=== PATIENT | female | born 1935 | race Caucasian/White ===

== ENCOUNTER 2020-12-29 12:07 | Outpatient (CLI) | payer MEDICARE | END 2020-12-29 12:08 | disposition home or self-care (01) | LOC: BICRAD 12:07 | PROVIDERS: ATTEND Internal Medicine Pulmonary Disease | DX: R06.00 Dyspnea, unspecified (principal) | CPT/HCPCS: 71046 ==

== ENCOUNTER 2021-02-05 12:51 | Outpatient (CLI) | payer MEDICARE ==
[~2021-02-05 12:51] MED LIST: Iopamidol-370 76% 500 ML 1 ML ONE
== END 2021-02-05 12:52 | disposition home or self-care (01) ==
LOC: BICCT 12:51
PROVIDERS: ATTEND Specialist
DX: I71.4 Abdominal aortic aneurysm, without rupture (principal); K80.20 Calculus of gallbladder without cholecystitis without obstruction; D25.9 Leiomyoma of uterus, unspecified
CPT/HCPCS: 74174; 82565; Q9967

== ENCOUNTER 2021-09-27 12:23 | Outpatient (CLI) | payer MEDICARE | END 2021-09-27 12:24 | disposition home or self-care (01) | LOC: BICULT 12:23 | PROVIDERS: ATTEND Student in an Organized Health Care Education/Training Program | DX: I10 Essential (primary) hypertension (principal) | CPT/HCPCS: 76770 ==

== ENCOUNTER 2021-12-02 09:52 | Outpatient (CLI) | payer MEDICARE, OTHER | END 2021-12-02 09:53 | disposition home or self-care (01) | LOC: BICMAMMO 09:52 | PROVIDERS: ATTEND Student in an Organized Health Care Education/Training Program | DX: Z13.820 Encounter for screening for osteoporosis (principal); Z78.0 Asymptomatic menopausal state; M81.0 Age-related osteoporosis without current pathological fracture | CPT/HCPCS: 77080 ==

== ENCOUNTER 2022-04-25 21:20 | Emergency (ER) | payer OTHER ==
[2022-04-25] MEDS ORDERED: diphenhydrAMINE 50 MG/ML VIAL ONE (21:45)
[2022-04-25] MEDS ORDERED: Acetaminophen 500 MG TAB ONE (21:45)
[2022-04-25] MEDS ORDERED: Metoclopramide HCl 10 MG/2 ML VIAL ONE (21:45)
[2022-04-25] MEDS ORDERED: diphenhydrAMINE 12.5 MG/5 ML UDCUP ONE (21:45)
[2022-04-25 21:53] LABS: #Eosinphils 0.2 thou/uL (0.0-0.7); #Lymphocytes 1.6 thou/uL (1.20-3.40); #Monocytes 0.6 thou/uL (0.11-0.59); #Neutrophils 4.4 thou/uL (1.40-6.50); %Basophils 0.4 % (0.0-1.0); %Eosinophils 3.1 % (0.0-10.0); %Lymphocytes 23.2 % (21.0-51.0); %Neutrophils 64.2 % (42.0-75.0); Hemoglobin 12.1 g/dL (12.0-16.0); Mean Corpuscular HGB CONC 31.9 g/dL (32.0-36.0); Mean Corpuscular Hemoglobin 31.2 pg (27.0-31.0); Mean Platelet Volume 6.6 fL (7.4-10.4); Platelet Count 306 10x3/uL (130-400); RBC Distribution Width 12.1 % (11.5-14.5); Red Blood Cell (RBC) Count 3.88 mill/uL (4.20-5.40); White Blood Cell (WBC) Count 6.9 10x3/uL (4.8-10.8)
[2022-04-25] MEDS ORDERED: hydrALAZINE 20 MG/ML VIAL ONE (21:54)
[2022-04-25 22:16] LABS: ALT (SGPT) Less than 7 U/L (8-55); AST (SGOT) 18 U/L (5-34); Albumin 3.5 g/dL (3.4-4.8); Alkaline Phosphatase 115 U/L (40-110); Anion Gap 11 mmol/L (10-20); BUN (Urea Nitrogen) 12 mg/dL (9.8-20.1); Bilirubin, Total 1.2 mg/dL (0.2-1.2); Calc. Creatinine Clearance 0 mL/min (70-130); Calcium 9.1 mg/dL (7.8-10.44); Carbon Dioxide 31 mmol/L (23-31); Chloride 103 mmol/L (98-107); Estimated GFR 70; Globulin 2.9 g/dL (2.4-3.5); Glucose 116 mg/dL (83-110); Potassium 3.8 mmol/L (3.5-5.1); Protein, Total 6.4 g/dL (5.8-8.1); Sodium 141 mmol/L (136-145)
[2022-04-26 00:13] LABS: Bacteria/HPF 4+ HPF (None Seen); Bilirubin Negative (Negative); Blood, Urine Negative (Negative); Clarity Turbid (Clear); Glucose, Urine (Dipstick) Normal (Negative); Ketone, Urine Negative (Negative); Leukocyte 500 Leu/uL (Negative); Nitrite Negative (Negative); Protein, Urine (Dipstick) 20 mg/dL (Neg-Trace); RBC/HPF 0-3 HPF (0-3); Specific Gravity, Urine 1.012 (1.002-1.036); Squamous Epithelial 0-3 HPF (0-3); Urobilinogen Normal mg/dL (Less than 2); WBC/HPF Greater than 50 HPF (0-3)
== END 2022-04-26 00:56 | disposition home or self-care (01) ==
LOC: ERS 21:20
DX: I10 Essential (primary) hypertension (principal); N39.0 Urinary tract infection, site not specified; E78.5 Hyperlipidemia, unspecified; J44.9 Chronic obstructive pulmonary disease, unspecified; Z79.899 Other long term (current) drug therapy; Z79.82 Long term (current) use of aspirin; Z87.891 Personal history of nicotine dependence
CPT/HCPCS: 36415; 70450; 80053; 81003; 81015; 84484; 85025; 93005; 96374; J0360; J1200; J2765; Q0163

== ENCOUNTER 2022-08-22 12:58 | Outpatient (CLI) | payer OTHER | END 2022-08-22 12:59 | disposition home or self-care (01) | LOC: SCSRAD 12:58 | PROVIDERS: ATTEND Student in an Organized Health Care Education/Training Program | DX: R06.02 Shortness of breath (principal) | CPT/HCPCS: 71046; 71048 ==

== ENCOUNTER 2023-02-17 00:27 | Inpatient (IN) | payer OTHER ==
[2023-02-17] MEDS ORDERED: Ipratropium/Albuterol 3 ML NEB ONE (00:39)
[2023-02-17] MEDS ORDERED: Azithromycin 500 MG VIAL ONE (01:12)
[2023-02-17] MEDS ORDERED: Sodium Chloride 0.9% 100 ML ONE ×2 (01:12→01:15)
[2023-02-17] MEDS ORDERED: methylPREDNISolone Sod Succ/PF 125 MG/2 ML VIAL ONE (01:12)
[2023-02-17] MEDS ORDERED: cefTRIAXone (ROCEPHIN) 2 GM VIAL ONE (01:14)
[2023-02-17 01:15] LABS: #Basophils 0.1 thou/uL (0.0-0.2); #Monocytes 1.5 thou/uL (0.11-0.59); #Neutrophils 18.1 thou/uL (1.40-6.50); %Basophils 0.4 % (0.0-1.0); %Lymphocytes 5.2 % (21.0-51.0); %Neutrophils 86.7 % (42.0-75.0); Hematocrit 35.4 % (36.0-47.0); Hemoglobin 11.3 g/dL (12.0-16.0); Mean Corpuscular HGB CONC 31.9 g/dL (32.0-36.0); Mean Corpuscular Hemoglobin 30.3 pg (27.0-31.0); Mean Corpuscular Volume 94.9 fl (78.0-98.0); Mean Platelet Volume 9.8 fL (7.4-10.4); Platelet Count 305 10x3/uL (130-400); RBC Distribution Width 13.8 % (11.5-14.5); Red Blood Cell (RBC) Count 3.73 mill/uL (4.20-5.40); White Blood Cell (WBC) Count 20.9 10x3/uL (4.8-10.8)
[2023-02-17 01:42] LABS: ALT (SGPT) 10 U/L (8-55); AST (SGOT) 21 U/L (5-34); Alkaline Phosphatase 101 U/L (40-110); Anion Gap 20 mmol/L (10-20); BUN (Urea Nitrogen) 29 mg/dL (9.8-20.1); Bilirubin, Total 1.7 mg/dL (0.2-1.2); Calc. Creatinine Clearance 0 mL/min (70-130); Calcium 9.2 mg/dL (7.8-10.44); Carbon Dioxide 27 mmol/L (23-31); Chloride 99 mmol/L (98-107); Estimated GFR 37; Globulin 3.2 g/dL (2.4-3.5); Glucose 165 mg/dL (83-110); Potassium 4.6 mmol/L (3.5-5.1); Protein, Total 7.2 g/dL (5.8-8.1); Sodium 141 mmol/L (136-145)
[2023-02-17 01:45] LABS: Bacteria/HPF 1+ HPF (None Seen); Bilirubin Negative (Negative); Blood, Urine 1+ (Negative); CAUTI Indications for Culture Alt mental st,lethar; Clarity Extra Turbid (Clear); Glucose, Urine (Dipstick) Normal (Negative); Ketone, Urine Negative (Negative); Leukocyte 500 Leu/uL (Negative); Nitrite Negative (Negative); Protein, Urine (Dipstick) 100 mg/dL (Neg-Trace); Specific Gravity, Urine 1.016 (1.002-1.036); Squamous Epithelial 0-3 HPF (0-3); Transitional Epithelial 0-3 HPF (None Seen); Urobilinogen Normal mg/dL (Less than 2); WBC/HPF Greater than 50 HPF (0-3); pH, Urine 5.5 (5.0-9.0)
[2023-02-17 01:46] LABS: Urine Culture Reflex Yes Yes
[2023-02-17] MEDS ORDERED: Ondansetron ODT 4 MG TAB PO PRN (04:57)
[2023-02-17] MEDS ORDERED: Acetaminophen 325 MG TAB PO PRN (04:57)
[2023-02-17] MEDS: Ipratropium/Albuterol 3 ML NEB NEB SCH ×3 (07:18→18:09)
[2023-02-17] MEDS: Sodium Chloride 0.9% 1,000 ML IV SCH ×2 (08:55→20:00)
[2023-02-17] MEDS: Famotidine 20 MG TAB PO SCH ×2 (08:55→20:00)
[2023-02-17] MEDS ORDERED: methylPREDNISolone Sod Succ 40 MG VIAL IVP SCH (09:00)
[2023-02-17] MEDS: methylPREDNISolone Sod Succ 40 MG VIAL IVP SCH ×3 (12:29→23:35)
[2023-02-17] MEDS ORDERED: Iopamidol 370 76% 100 ML VIAL ONE (13:00)
[2023-02-17 14:05] VITALS: BMI 21.7
[2023-02-17] MEDS: Mometasone/Formoterol 200/5 60 PUFF INH SCH (18:11)
[2023-02-17] MEDS: cefTRIAXone\\ROCEPHIN 1 GM in Sodium Chloride 0.9% 100 ML IVPB SCH (20:00)
[2023-02-17] MEDS: Atorvastatin Calcium 40 MG TAB PO SCH (20:00)
[2023-02-17 21:05] LABS: Troponin I 0.059 ng/mL (< 0.028)
[2023-02-18] MEDS: Ipratropium/Albuterol 3 ML NEB NEB SCH ×4 (00:53→18:26)
[2023-02-18 05:02] LABS: #Monocytes 0.5 thou/uL (0.11-0.59); %Basophils 0.2 % (0.0-1.0); %Lymphocytes 6.4 % (21.0-51.0); %Monocytes 3.8 % (0.0-10.0); %Neutrophils 88.6 % (42.0-75.0); Hematocrit 28.2 % (36.0-47.0); Hemoglobin 8.9 g/dL (12.0-16.0); Mean Corpuscular HGB CONC 31.6 g/dL (32.0-36.0); Mean Corpuscular Hemoglobin 30.6 pg (27.0-31.0); Mean Corpuscular Volume 96.9 fl (78.0-98.0); Mean Platelet Volume 9.6 fL (7.4-10.4); Platelet Count 236 10x3/uL (130-400); RBC Distribution Width 13.5 % (11.5-14.5); Red Blood Cell (RBC) Count 2.91 mill/uL (4.20-5.40); White Blood Cell (WBC) Count 12.4 10x3/uL (4.8-10.8)
[2023-02-18] MEDS: Azithromycin 500 MG in Sodium Chloride 0.9% 250 ML 250 ML IVPB SCH (05:14)
[2023-02-18] MEDS: methylPREDNISolone Sod Succ 40 MG VIAL IVP SCH ×3 (05:15→18:08)
[2023-02-18 05:26] LABS: Anion Gap 11 mmol/L (10-20); BUN (Urea Nitrogen) 31 mg/dL (9.8-20.1); Calc. Creatinine Clearance 28 mL/min (70-130); Calcium 8.7 mg/dL (7.8-10.44); Carbon Dioxide 26 mmol/L (23-31); Chloride 109 mmol/L (98-107); Estimated GFR 44; Glucose 191 mg/dL (83-110); Potassium 3.6 mmol/L (3.5-5.1); Sodium 142 mmol/L (136-145)
[2023-02-18] MEDS: Mometasone/Formoterol 200/5 60 PUFF INH SCH ×2 (07:14→18:29)
[2023-02-18] MEDS: Famotidine 20 MG TAB PO SCH (08:52)
[2023-02-18] MEDS ORDERED: Amlodipine 10 MG TAB PO SCH ×2 (09:00→09:45)
[2023-02-18] MEDS ORDERED: cloNIDine 0.1 MG TAB PO PRN (09:07)
[2023-02-18] MEDS ORDERED: Atorvastatin Calcium 40 MG TAB PO SCH (21:00)
[2023-02-18] MEDS: Atorvastatin Calcium 40 MG TAB PO SCH (22:18)
[2023-02-18] MEDS: cefTRIAXone\\ROCEPHIN 1 GM in Sodium Chloride 0.9% 100 ML IVPB SCH (22:18)
[2023-02-19] MEDS: methylPREDNISolone Sod Succ 40 MG VIAL IVP SCH ×4 (00:50→17:53)
[2023-02-19] MEDS: Ipratropium/Albuterol 3 ML NEB NEB SCH ×4 (00:52→19:27)
[2023-02-19] MEDS: Azithromycin 500 MG in Sodium Chloride 0.9% 250 ML 250 ML IVPB SCH (06:26)
[2023-02-19] MEDS: Mometasone/Formoterol 200/5 60 PUFF INH SCH ×2 (06:46→19:27)
[2023-02-19] MEDS: Famotidine 20 MG TAB PO SCH (09:12)
[2023-02-19] MEDS: Amlodipine 10 MG TAB PO SCH (09:12)
[2023-02-19 09:52] LABS: #Monocytes 0.3 thou/uL (0.11-0.59); #Neutrophils 11.9 thou/uL (1.40-6.50); %Basophils 0.2 % (0.0-1.0); %Lymphocytes 4.4 % (21.0-51.0); %Monocytes 2.6 % (0.0-10.0); %Neutrophils 90.7 % (42.0-75.0); Hematocrit 33.4 % (36.0-47.0); Hemoglobin 10.6 g/dL (12.0-16.0); Mean Corpuscular HGB CONC 31.7 g/dL (32.0-36.0); Mean Corpuscular Hemoglobin 30.7 pg (27.0-31.0); Mean Corpuscular Volume 96.8 fl (78.0-98.0); Mean Platelet Volume 9.5 fL (7.4-10.4); Platelet Count 355 10x3/uL (130-400); RBC Distribution Width 13.6 % (11.5-14.5); Red Blood Cell (RBC) Count 3.45 mill/uL (4.20-5.40); White Blood Cell (WBC) Count 13.1 10x3/uL (4.8-10.8)
[2023-02-19 10:12] LABS: Anion Gap 17 mmol/L (10-20); BUN (Urea Nitrogen) 26 mg/dL (9.8-20.1); Calc. Creatinine Clearance 32 mL/min (70-130); Calcium 8.9 mg/dL (7.8-10.44); Carbon Dioxide 26 mmol/L (23-31); Chloride 106 mmol/L (98-107); Estimated GFR 53; Glucose 189 mg/dL (83-110); Potassium 3.4 mmol/L (3.5-5.1); Sodium 146 mmol/L (136-145)
[2023-02-19] MEDS ORDERED: Potassium Chloride 20 MEQ TAB PO SCH (14:30)
[2023-02-19] MEDS: Sodium Chloride 0.9% 1,000 ML IV SCH (14:35)
[2023-02-19] MEDS: cefTRIAXone\\ROCEPHIN 1 GM in Sodium Chloride 0.9% 100 ML IVPB SCH (20:16)
[2023-02-19] MEDS: Atorvastatin Calcium 40 MG TAB PO SCH (20:16)
[2023-02-20] MEDS: methylPREDNISolone Sod Succ 40 MG VIAL IVP SCH ×3 (00:38→13:07)
[2023-02-20] MEDS: Ipratropium/Albuterol 3 ML NEB NEB SCH ×3 (00:54→13:45)
[2023-02-20] MEDS: Sodium Chloride 0.9% 1,000 ML IV SCH (05:34)
[2023-02-20 06:09] LABS: #Monocytes 0.5 thou/uL (0.11-0.59); #Neutrophils 8.4 thou/uL (1.40-6.50); %Basophils 0.3 % (0.0-1.0); %Lymphocytes 6.6 % (21.0-51.0); %Monocytes 4.5 % (0.0-10.0); %Neutrophils 84.8 % (42.0-75.0); Hematocrit 30.7 % (36.0-47.0); Hemoglobin 9.5 g/dL (12.0-16.0); Mean Corpuscular HGB CONC 30.9 g/dL (32.0-36.0); Mean Corpuscular Hemoglobin 29.7 pg (27.0-31.0); Mean Corpuscular Volume 95.9 fl (78.0-98.0); Mean Platelet Volume 9.5 fL (7.4-10.4); Platelet Count 303 10x3/uL (130-400); RBC Distribution Width 13.5 % (11.5-14.5); White Blood Cell (WBC) Count 9.9 10x3/uL (4.8-10.8)
[2023-02-20 06:31] LABS: Anion Gap 10 mmol/L (10-20); BUN (Urea Nitrogen) 28 mg/dL (9.8-20.1); Calc. Creatinine Clearance 35 mL/min (70-130); Carbon Dioxide 31 mmol/L (23-31); Chloride 104 mmol/L (98-107); Estimated GFR 58; Glucose 153 mg/dL (83-110); Potassium 3.9 mmol/L (3.5-5.1); Sodium 141 mmol/L (136-145)
[2023-02-20] MEDS: Mometasone/Formoterol 200/5 60 PUFF INH SCH (07:10)
[2023-02-20] MEDS: Amlodipine 10 MG TAB PO SCH (09:41)
[2023-02-20] MEDS: Famotidine 20 MG TAB PO SCH (09:41)
[2023-02-20 12:36] VITALS: BP 159/79; TEMP 97.6
== END 2023-02-20 15:03 | disposition home or self-care (01) | DRG 871 ==
LOC: ERS 00:27 → 2SE 05:57
PROVIDERS: ADMIT Student in an Organized Health Care Education/Training Program; ATTEND Family Medicine
DX: A41.51 Sepsis due to Escherichia coli [E. coli] (principal); J96.21 Acute and chronic respiratory failure with hypoxia; J44.1 Chronic obstructive pulmonary disease with (acute) exacerbation; N39.0 Urinary tract infection, site not specified; N17.9 Acute kidney failure, unspecified; E87.0 Hyperosmolality and hypernatremia; R65.20 Severe sepsis without septic shock; Z66 Do not resuscitate; M84.375A Stress fracture, left foot, initial encounter for fracture; I10 Essential (primary) hypertension; E78.5 Hyperlipidemia, unspecified; R53.1 Weakness; R91.1 Solitary pulmonary nodule; B96.20 Unspecified Escherichia coli [E. coli] as the cause of diseases classified elsewhere; E87.6 Hypokalemia; Z85.3 Personal history of malignant neoplasm of breast; Z90.10 Acquired absence of unspecified breast and nipple; Z98.890 Other specified postprocedural states
CPT/HCPCS: 36415; 36416; 51701; 71045; 71275; 80048; 80053; 81001; 83605; 83880; 84484; 85025; 87040; 87077; 87086; 87149; 87186; 93005; 93306; 94640; 94660; 94664; 96365; 96375; J0456; J0696; J1650; J2920; J2930; J3490; J7050; J7620

== ENCOUNTER 2023-03-01 11:52 | Outpatient (CLI) | payer OTHER | END 2023-03-01 11:53 | disposition home or self-care (01) | LOC: SCSRAD 11:52 | PROVIDERS: ATTEND Family Medicine | DX: M79.605 Pain in left leg (principal); S92.322A Displaced fracture of second metatarsal bone, left foot, initial encounter for closed fracture; S92.332A Displaced fracture of third metatarsal bone, left foot, initial encounter for closed fracture ==

== ENCOUNTER 2023-03-02 12:02 | Inpatient (IN) | payer OTHER ==
[2023-03-02 12:54] LABS: #Eosinphils 0.2 thou/uL (0.0-0.7); #Monocytes 0.6 thou/uL (0.11-0.59); #Neutrophils 10.3 thou/uL (1.40-6.50); %Basophils 0.3 % (0.0-1.0); %Eosinophils 1.3 % (0.0-10.0); %Lymphocytes 6.2 % (21.0-51.0); %Monocytes 4.9 % (0.0-10.0); %Neutrophils 86.3 % (42.0-75.0); Hematocrit 31.9 % (36.0-47.0); Hemoglobin 10.2 g/dL (12.0-16.0); Mean Corpuscular Hemoglobin 30.5 pg (27.0-31.0); Mean Corpuscular Volume 95.5 fl (78.0-98.0); Platelet Count 173 10x3/uL (130-400); RBC Distribution Width 14.7 % (11.5-14.5); Red Blood Cell (RBC) Count 3.34 mill/uL (4.20-5.40)
[2023-03-02 13:27] LABS: ALT (SGPT) 16 U/L (8-55); AST (SGOT) 29 U/L (5-34); Albumin 3.7 g/dL (3.4-4.8); Alkaline Phosphatase 62 U/L (40-110); Anion Gap 15 mmol/L (10-20); BUN (Urea Nitrogen) 33 mg/dL (9.8-20.1); Calc. Creatinine Clearance 0 mL/min (70-130); Calcium 9.1 mg/dL (7.8-10.44); Carbon Dioxide 34 mmol/L (23-31); Chloride 95 mmol/L (98-107); Estimated GFR 20; Globulin 2.5 g/dL (2.4-3.5); Glucose 93 mg/dL (83-110); Potassium 4.1 mmol/L (3.5-5.1); Protein, Total 6.2 g/dL (5.8-8.1); Sodium 140 mmol/L (136-145)
[2023-03-02] MEDS ORDERED: Magnesium 2 GM/50 ML BAG (IN WATER) ONE (13:34)
[2023-03-02] MEDS ORDERED: methylPREDNISolone Sod Succ/PF 125 MG/2 ML VIAL ONE (13:34)
[2023-03-02 13:35] LABS: Troponin I 0.019 ng/mL (< 0.028)
[2023-03-02] MEDS ORDERED: Ipratropium/Albuterol 3 ML NEB ONE (16:10)
[2023-03-02] MEDS ORDERED: Ondansetron PF 4 MG/2 ML Vial IVP PRN ×2 (18:00→18:16)
[2023-03-02] MEDS ORDERED: Ondansetron ODT 4 MG TAB SL PRN (18:00)
[2023-03-02] MEDS ORDERED: Acetaminophen 325 MG TAB PO PRN (18:00)
[2023-03-02] MEDS ORDERED: Ondansetron ODT 4 MG TAB PO PRN (18:16)
[2023-03-02] MEDS ORDERED: Guaifenesin DM 100-10/5 ML UDCUP PO PRN (18:16)
[2023-03-02] MEDS ORDERED: cloNIDine 0.1 MG TAB PO PRN (18:16)
[2023-03-02] MEDS ORDERED: Ipratropium/Albuterol 3 ML NEB NEB PRN (18:16)
[2023-03-02] MEDS: Sodium Chloride 0.9% 1,000 ML IV SCH (18:27)
[2023-03-02 18:30] VITALS: BMI 21.9
[2023-03-02] MEDS: Heparin 5,000 UNITS/ML VIAL SC SCH (21:03)
[2023-03-02] MEDS: Ipratropium/Albuterol 3 ML NEB NEB SCH ×2 (21:39→23:15)
[2023-03-03] MEDS: methylPREDNISolone Sod Succ 40 MG VIAL IVP SCH ×3 (00:58→13:30)
[2023-03-03 04:47] LABS: #Monocytes 0.1 thou/uL (0.11-0.59); #Neutrophils 4.3 thou/uL (1.40-6.50); %Lymphocytes 8.2 % (21.0-51.0); %Monocytes 1.9 % (0.0-10.0); %Neutrophils 89.3 % (42.0-75.0); Hematocrit 25.4 % (36.0-47.0); Hemoglobin 8.1 g/dL (12.0-16.0); Mean Corpuscular HGB CONC 31.9 g/dL (32.0-36.0); Mean Corpuscular Hemoglobin 30.1 pg (27.0-31.0); Mean Corpuscular Volume 94.4 fl (78.0-98.0); Mean Platelet Volume 10.3 fL (7.4-10.4); Platelet Count 132 10x3/uL (130-400); RBC Distribution Width 14.5 % (11.5-14.5); Red Blood Cell (RBC) Count 2.69 mill/uL (4.20-5.40); White Blood Cell (WBC) Count 4.8 10x3/uL (4.8-10.8)
[2023-03-03 05:10] LABS: Anion Gap 10 mmol/L (10-20); BUN (Urea Nitrogen) 32 mg/dL (9.8-20.1); Calc. Creatinine Clearance 19 mL/min (70-130); Calcium 8.2 mg/dL (7.8-10.44); Carbon Dioxide 31 mmol/L (23-31); Chloride 100 mmol/L (98-107); Estimated GFR 28; Glucose 193 mg/dL (83-110); Sodium 137 mmol/L (136-145)
[2023-03-03] MEDS: Sodium Chloride 0.9% 1,000 ML IV SCH ×2 (05:44→22:12)
[2023-03-03] MEDS: Ipratropium/Albuterol 3 ML NEB NEB SCH ×3 (07:51→19:11)
[2023-03-03] MEDS: Heparin 5,000 UNITS/ML VIAL SC SCH ×3 (08:47→22:12)
[2023-03-03] MEDS: Atorvastatin Calcium 40 MG TAB PO SCH (08:47)
[2023-03-03] MEDS ORDERED: Amlodipine 10 MG TAB PO SCH (09:00)
[2023-03-04] MEDS: Ipratropium/Albuterol 3 ML NEB NEB SCH ×4 (01:57→19:19)
[2023-03-04 02:17] LABS: Creatinine, Urine 41.49 mg/dL (47-110); Protein, Urine Random Quant Less than 10 mg/dL (1-14); Sodium, Urine 66 mmol/L (Not Available)
[2023-03-04 05:06] LABS: #Monocytes 0.3 thou/uL (0.11-0.59); #Neutrophils 6.4 thou/uL (1.40-6.50); %Lymphocytes 4.6 % (21.0-51.0); %Monocytes 3.7 % (0.0-10.0); Hematocrit 23.5 % (36.0-47.0); Hemoglobin 7.6 g/dL (12.0-16.0); Mean Corpuscular HGB CONC 32.3 g/dL (32.0-36.0); Mean Corpuscular Hemoglobin 31.1 pg (27.0-31.0); Mean Corpuscular Volume 96.3 fl (78.0-98.0); Mean Platelet Volume 10.4 fL (7.4-10.4); Platelet Count 175 10x3/uL (130-400); RBC Distribution Width 14.1 % (11.5-14.5); Red Blood Cell (RBC) Count 2.44 mill/uL (4.20-5.40)
[2023-03-04 05:32] LABS: Anion Gap 12 mmol/L (10-20); BUN (Urea Nitrogen) 29 mg/dL (9.8-20.1); Calc. Creatinine Clearance 20 mL/min (70-130); Calcium 8.5 mg/dL (7.8-10.44); Carbon Dioxide 29 mmol/L (23-31); Chloride 104 mmol/L (98-107); Estimated GFR 29; Glucose 161 mg/dL (83-110); Potassium 3.8 mmol/L (3.5-5.1); Sodium 141 mmol/L (136-145)
[2023-03-04] MEDS ORDERED: Iron, Sodium Ferric Gluconate 250 MG in Sodium Chloride 0.9% 250 ML 250 ML IVPB SCH (08:00)
[2023-03-04] MEDS ORDERED: Epoetin (ESRD) 10,000 UNITS/ML VIAL SC SCH (09:00)
[2023-03-04] MEDS: predniSONE 50 MG TAB PO SCH (09:20)
[2023-03-04] MEDS: Heparin 5,000 UNITS/ML VIAL SC SCH ×3 (09:20→20:41)
[2023-03-04] MEDS: Atorvastatin Calcium 40 MG TAB PO SCH (09:22)
[2023-03-04] MEDS: Sodium Chloride 0.9% 1,000 ML IV SCH (11:36)
[2023-03-04] MEDS ORDERED: Acetaminophen 500 MG TAB PO PRN (13:02)
[2023-03-04] MEDS ORDERED: Aspirin 81 mg Enteric Coated Tablet PO SCH (14:30)
[2023-03-05] MEDS: Ipratropium/Albuterol 3 ML NEB NEB SCH ×3 (01:43→13:17)
[2023-03-05 04:39] LABS: #Monocytes 0.3 thou/uL (0.11-0.59); #Neutrophils 5.7 thou/uL (1.40-6.50); %Basophils 0.2 % (0.0-1.0); %Lymphocytes 6.1 % (21.0-51.0); %Monocytes 3.9 % (0.0-10.0); %Neutrophils 88.6 % (42.0-75.0); Hematocrit 24.8 % (36.0-47.0); Hemoglobin 7.7 g/dL (12.0-16.0); Mean Corpuscular Hemoglobin 30.2 pg (27.0-31.0); Mean Corpuscular Volume 97.3 fl (78.0-98.0); Mean Platelet Volume 9.9 fL (7.4-10.4); Platelet Count 194 10x3/uL (130-400); RBC Distribution Width 14.4 % (11.5-14.5); Red Blood Cell (RBC) Count 2.55 mill/uL (4.20-5.40); White Blood Cell (WBC) Count 6.4 10x3/uL (4.8-10.8)
[2023-03-05 05:00] LABS: Anion Gap 11 mmol/L (10-20); BUN (Urea Nitrogen) 27 mg/dL (9.8-20.1); Calc. Creatinine Clearance 24 mL/min (70-130); Calcium 8.8 mg/dL (7.8-10.44); Carbon Dioxide 32 mmol/L (23-31); Chloride 102 mmol/L (98-107); Estimated GFR 37; Glucose 134 mg/dL (83-110); Potassium 4.1 mmol/L (3.5-5.1); Sodium 141 mmol/L (136-145)
[2023-03-05] MEDS ORDERED: predniSONE 20 MG TAB PO SCH (08:00)
[2023-03-05] MEDS: Atorvastatin Calcium 40 MG TAB PO SCH (08:38)
[2023-03-05] MEDS: Heparin 5,000 UNITS/ML VIAL SC SCH (08:38)
[2023-03-05] MEDS ORDERED: Aspirin 81 mg Enteric Coated Tablet PO SCH (09:00)
[2023-03-05 12:59] VITALS: BP 159/69; TEMP 98
== END 2023-03-05 17:54 | disposition home or self-care (01) | DRG 607 ==
LOC: ERS 12:02 → ERHOLD 15:29 → 2NO 17:50
PROVIDERS: ADMIT Emergency Medicine; ATTEND Hospitalist
DX: L27.0 Generalized skin eruption due to drugs and medicaments taken internally (principal); N17.9 Acute kidney failure, unspecified; E87.3 Alkalosis; J44.1 Chronic obstructive pulmonary disease with (acute) exacerbation; J96.11 Chronic respiratory failure with hypoxia; I13.0 Hypertensive heart and chronic kidney disease with heart failure and stage 1 through stage 4 chronic kidney disease, or unspecified chronic kidney disease; D63.1 Anemia in chronic kidney disease; T36.8X5A Adverse effect of other systemic antibiotics, initial encounter; E86.9 Volume depletion, unspecified; I50.9 Heart failure, unspecified; E78.5 Hyperlipidemia, unspecified; Z83.3 Family history of diabetes mellitus; Z85.3 Personal history of malignant neoplasm of breast; Z90.10 Acquired absence of unspecified breast and nipple; Z99.81 Dependence on supplemental oxygen; Z88.2 Allergy status to sulfonamides; Z88.1 Allergy status to other antibiotic agents; Z98.890 Other specified postprocedural states; Z87.891 Personal history of nicotine dependence; Z79.899 Other long term (current) drug therapy; D72.829 Elevated white blood cell count, unspecified; M79.605 Pain in left leg; S92.322A Displaced fracture of second metatarsal bone, left foot, initial encounter for closed fracture; S92.332A Displaced fracture of third metatarsal bone, left foot, initial encounter for closed fracture; J98.4 Other disorders of lung; R53.83 Other fatigue
CPT/HCPCS: 36415; 71045; 71046; 80048; 80053; 81001; 81015; 82040; 82570; 83880; 84156; 84300; 84484; 85025; 87086; 93005; 94640; 96361; 96365; 96375; J1644; J2916; J2920; J2930; J3475; J7050; J7512; J7620; Q4081

== ENCOUNTER 2023-03-08 14:50 | Emergency (ER) | payer OTHER ==
[2023-03-08 15:32] LABS: #Eosinphils 0.1 thou/uL (0.0-0.7); #Monocytes 0.6 thou/uL (0.11-0.59); #Neutrophils 17.8 thou/uL (1.40-6.50); %Basophils 0.2 % (0.0-1.0); %Eosinophils 0.3 % (0.0-10.0); %Lymphocytes 4.3 % (21.0-51.0); %Neutrophils 90.7 % (42.0-75.0); Hematocrit 34.5 % (36.0-47.0); Hemoglobin 10.9 g/dL (12.0-16.0); Mean Corpuscular HGB CONC 31.6 g/dL (32.0-36.0); Mean Corpuscular Hemoglobin 31.1 pg (27.0-31.0); Mean Corpuscular Volume 98.3 fl (78.0-98.0); Mean Platelet Volume 9.3 fL (7.4-10.4); Platelet Count 363 10x3/uL (130-400); RBC Distribution Width 14.8 % (11.5-14.5); Red Blood Cell (RBC) Count 3.51 mill/uL (4.20-5.40); White Blood Cell (WBC) Count 19.6 10x3/uL (4.8-10.8)
[2023-03-08] MEDS ORDERED: Fluorescein Opthalmic Strip ONE (15:40)
[2023-03-08] MEDS ORDERED: Proparacaine 0.5% Opth 15 ML BOT ONE (15:41)
[2023-03-08 16:02] LABS: ALT (SGPT) 13 U/L (8-55); AST (SGOT) 17 U/L (5-34); Albumin 3.5 g/dL (3.4-4.8); Alkaline Phosphatase 65 U/L (40-110); Anion Gap 17 mmol/L (10-20); BUN (Urea Nitrogen) 34 mg/dL (9.8-20.1); Bilirubin, Total 0.9 mg/dL (0.2-1.2); Calc. Creatinine Clearance 0 mL/min (70-130); Calcium 9.2 mg/dL (7.8-10.44); Carbon Dioxide 32 mmol/L (23-31); Chloride 99 mmol/L (98-107); Estimated GFR 41; Globulin 2.8 g/dL (2.4-3.5); Glucose 97 mg/dL (83-110); Potassium 4.5 mmol/L (3.5-5.1); Protein, Total 6.3 g/dL (5.8-8.1); Sodium 143 mmol/L (136-145)
== END 2023-03-08 19:49 | disposition short-term general hospital (02) ==
LOC: ERS 14:50
DX: L51.1 Stevens-Johnson syndrome (principal); J44.9 Chronic obstructive pulmonary disease, unspecified; I10 Essential (primary) hypertension; E78.5 Hyperlipidemia, unspecified; Z87.891 Personal history of nicotine dependence
CPT/HCPCS: 71045; 80053; 85025; 86140; 93005

== ENCOUNTER 2023-03-13 14:21 | Inpatient (IN) | payer OTHER ==
[~2023-03-13 14:21] MED LIST changes: -Iopamidol-370 76% 500 ML 1 ML ONE; +Iopamidol-370 76% 500 ML MDV (1 ML CHARGE) ONE
[2023-03-13 15:08] LABS: #Eosinphils 0.1 thou/uL (0.0-0.7); #Monocytes 0.9 thou/uL (0.11-0.59); #Neutrophils 9.1 thou/uL (1.40-6.50); %Basophils 0.2 % (0.0-1.0); %Eosinophils 0.8 % (0.0-10.0); %Lymphocytes 10.1 % (21.0-51.0); %Monocytes 7.6 % (0.0-10.0); %Neutrophils 80.2 % (42.0-75.0); Hematocrit 34.9 % (36.0-47.0); Hemoglobin 10.2 g/dL (12.0-16.0); Mean Corpuscular HGB CONC 29.2 g/dL (32.0-36.0); Mean Corpuscular Hemoglobin 30.6 pg (27.0-31.0); Mean Corpuscular Volume 104.8 fl (78.0-98.0); Mean Platelet Volume 9.4 fL (7.4-10.4); Platelet Count 267 10x3/uL (130-400); RBC Distribution Width 16.2 % (11.5-14.5); Red Blood Cell (RBC) Count 3.33 mill/uL (4.20-5.40); White Blood Cell (WBC) Count 11.4 10x3/uL (4.8-10.8)
[2023-03-13 15:23] LABS: INR-International Normal Ratio 0.9; PTT 33.3 sec (22.9-36.1); Prothrombin Time 12.2 sec (12.0-14.7)
[2023-03-13 15:26] LABS: ALT (SGPT) 21 U/L (8-55); AST (SGOT) 29 U/L (5-34); Albumin 3.5 g/dL (3.4-4.8); Alkaline Phosphatase 68 U/L (40-110); BUN (Urea Nitrogen) 20 mg/dL (9.8-20.1); Bilirubin, Total 0.8 mg/dL (0.2-1.2); Calc. Creatinine Clearance 0 mL/min (70-130); Calcium 9.3 mg/dL (7.8-10.44); Estimated GFR 58; Globulin 2.4 g/dL (2.4-3.5); Glucose 154 mg/dL (83-110); Protein, Total 5.9 g/dL (5.8-8.1)
[2023-03-13 15:28] LABS: Magnesium 1.8 mg/dL (1.6-2.6)
[2023-03-13 15:35] LABS: Troponin I 0.024 ng/mL (< 0.028)
[2023-03-13 15:37] LABS: Anion Gap 20 mmol/L (10-20); Carbon Dioxide 36 mmol/L (23-31); Chloride 98 mmol/L (98-107); Potassium 4.2 mmol/L (3.5-5.1); Sodium 150 mmol/L (136-145)
[2023-03-13 15:42] LABS: Actual Bicarbonate (HCO3v) 33.1 mEq/L (22-28); Analyzer IN Cardio ER; Calcium, Ionized (venous) 1.01 mmol/L (1.16-1.32); Chloride (VBG) 108 mmol/L (98-106); Hematocrit-VBG 30 % (36.0-47.0); Hemoglobin (Hb) 10.1 g/dL (11.7-16.1); Potassium (VBG) 3.31 mmol/L (3.70-5.30); Sodium 148 mmol/L (133-146); pH (venous) 7.392 (7.32-7.43)
[2023-03-13 16:02] LABS: Bilirubin Negative (Negative); Blood, Urine Negative (Negative); CAUTI Indications for Culture Immunosuppressed; Clarity Clear (Clear); Glucose, Urine (Dipstick) Normal (Negative); Ketone, Urine 10 mg/dL (Negative); Leukocyte 75 Leu/uL (Negative); Nitrite Negative (Negative); Protein, Urine (Dipstick) 70 mg/dL (Neg-Trace); RBC/HPF 0-3 HPF (0-3); Specific Gravity, Urine 1.017 (1.002-1.036); Squamous Epithelial 0-3 HPF (0-3); Urobilinogen Normal mg/dL (Less than 2); WBC/HPF 0-3 HPF (0-3); Yeast-Budding 1+ HPF (None Seen); pH, Urine 5.5 (5.0-9.0)
[2023-03-13 16:07] LABS: Bacteria/HPF 1+ HPF (None Seen)
[2023-03-13 16:08] LABS: Urine Culture Reflex Yes Yes
[2023-03-13 16:11] LABS: SARS-CoV-2 NAA Rapid Test Not Detected (NotDetected)
[2023-03-13] MEDS ORDERED: Vancomycin 1 GM/200 ML (FROZEN) BAG ONE (16:20)
[2023-03-13] MEDS ORDERED: Furosemide 40 MG/4 ML VIAL ONE (17:55)
[2023-03-13] MEDS ORDERED: Acetaminophen 650 MG Suppository ONE (20:48)
[2023-03-13] MEDS ORDERED: Acetaminophen 325 MG TAB PO PRN (21:15)
[2023-03-13] MEDS ORDERED: Ondansetron ODT 4 MG TAB SL PRN (21:15)
[2023-03-13] MEDS ORDERED: Ondansetron PF 4 MG/2 ML Vial IVP PRN (21:15)
[2023-03-13] MEDS ORDERED: Cefepime 2 GM VIAL ONE (21:55)
[2023-03-13] MEDS ORDERED: Sodium Chloride 0.9% 100 ML ONE (21:55)
[2023-03-13] MEDS ORDERED: Acetaminophen 650 MG Suppository PR PRN (21:57)
[2023-03-13] MEDS ORDERED: Ipratropium/Albuterol 3 ML NEB NEB PRN (22:03)
[2023-03-13] MEDS: Ipratropium/Albuterol 3 ML NEB NEB SCH (23:32)
[2023-03-13] MEDS ORDERED: Dextrose 5% in Water 1,000 ML IV PRN (23:37)
[2023-03-13] MEDS ORDERED: Dextrose 50% Abboject 50 ML SYRINGE SLOW IVP PRN (23:37)
[2023-03-13] MEDS ORDERED: Glucagon 1 MG/ML KIT IM PRN (23:37)
[2023-03-14] MEDS: Ipratropium/Albuterol 3 ML NEB NEB SCH ×6 (02:33→23:03)
[2023-03-14] MEDS: methylPREDNISolone Sod Succ 40 MG VIAL IVP SCH ×3 (05:02→18:37)
[2023-03-14] MEDS ORDERED: Furosemide 40 MG/4 ML VIAL SLOW IVP SCH (09:00)
[2023-03-14] MEDS ORDERED: Cefepime 2 GM in Sodium Chloride 0.9% 100 ML IVPB SCH (09:00)
[2023-03-14 09:54] LABS: #Monocytes 0.2 thou/uL (0.11-0.59); #Neutrophils 6.7 thou/uL (1.40-6.50); %Basophils 0.3 % (0.0-1.0); %Eosinophils 0.3 % (0.0-10.0); %Lymphocytes 5.6 % (21.0-51.0); %Monocytes 2.3 % (0.0-10.0); Hematocrit 31.8 % (36.0-47.0); Hemoglobin 9.7 g/dL (12.0-16.0); Mean Corpuscular HGB CONC 30.5 g/dL (32.0-36.0); Mean Corpuscular Hemoglobin 30.8 pg (27.0-31.0); Mean Platelet Volume 10.7 fL (7.4-10.4); Platelet Count 152 10x3/uL (130-400); RBC Distribution Width 15.7 % (11.5-14.5); Red Blood Cell (RBC) Count 3.15 mill/uL (4.20-5.40); White Blood Cell (WBC) Count 7.4 10x3/uL (4.8-10.8)
[2023-03-14 10:22] LABS: Anion Gap 20 mmol/L (10-20); BUN (Urea Nitrogen) 20 mg/dL (9.8-20.1); Calc. Creatinine Clearance 16 mL/min (70-130); Carbon Dioxide 35 mmol/L (23-31); Chloride 101 mmol/L (98-107); Estimated GFR 64; Glucose 132 mg/dL (83-110); Potassium 4.7 mmol/L (3.5-5.1)
[2023-03-14 10:27] LABS: Sodium 151 mmol/L (136-145)
[2023-03-14] MEDS: Vancomycin HCl 750 MG in Sodium Chloride 0.9% 250 ML 250 ML IVPB SCH (15:39)
[2023-03-14] MEDS: Sodium Chloride 0.45% 1,000 ML IV SCH ×2 (15:41→23:29)
[2023-03-14] MEDS ORDERED: Cefepime 1 GM in Sodium Chloride 0.9% 100 ML IVPB SCH (21:00)
[2023-03-15] MEDS: Ipratropium/Albuterol 3 ML NEB NEB SCH ×6 (02:55→23:50)
[2023-03-15 05:23] LABS: #Monocytes 0.3 thou/uL (0.11-0.59); #Neutrophils 4.4 thou/uL (1.40-6.50); %Basophils 0.2 % (0.0-1.0); %Lymphocytes 7.8 % (21.0-51.0); %Monocytes 5.7 % (0.0-10.0); %Neutrophils 85.3 % (42.0-75.0); Hematocrit 29.2 % (36.0-47.0); Hemoglobin 8.9 g/dL (12.0-16.0); Mean Corpuscular HGB CONC 30.5 g/dL (32.0-36.0); Mean Corpuscular Hemoglobin 30.4 pg (27.0-31.0); Mean Corpuscular Volume 99.7 fl (78.0-98.0); Mean Platelet Volume 9.8 fL (7.4-10.4); Platelet Count 195 10x3/uL (130-400); RBC Distribution Width 15.7 % (11.5-14.5); Red Blood Cell (RBC) Count 2.93 mill/uL (4.20-5.40); White Blood Cell (WBC) Count 5.1 10x3/uL (4.8-10.8)
[2023-03-15 05:46] LABS: BUN (Urea Nitrogen) 23 mg/dL (9.8-20.1); Calc. Creatinine Clearance 31 mL/min (70-130); Calcium 8.3 mg/dL (7.8-10.44); Estimated GFR 54; Glucose 133 mg/dL (83-110)
[2023-03-15 05:55] LABS: Anion Gap 19 mmol/L (10-20); Carbon Dioxide 37 mmol/L (23-31); Chloride 94 mmol/L (98-107); Sodium 147 mmol/L (136-145)
[2023-03-15] MEDS: methylPREDNISolone Sod Succ 40 MG VIAL IVP SCH ×2 (06:47→17:21)
[2023-03-15] MEDS: Dextrose 5% in Water 1,000 ML IV SCH (08:54)
[2023-03-15] MEDS: Potassium Chloride 20 MEQ TAB PO SCH ×2 (08:55→14:05)
[2023-03-15 16:09] LABS: Vancomycin, Trough 10.6 ug/mL
[2023-03-15] MEDS ORDERED: Vancomycin HCl 500 MG in Sodium Chloride 0.9% 100 ML IV SCH (16:45)
[2023-03-15] MEDS ORDERED: Vancomycin Dose by Levels Sliding Scale (Wt <71) FS SCH (16:45)
[2023-03-15] MEDS: Vancomycin HCl 750 MG in Sodium Chloride 0.9% 250 ML 250 ML IVPB SCH (19:37)
[2023-03-15] MEDS ORDERED: Cefepime 1 GM in Sodium Chloride 0.9% 100 ML IVPB SCH (21:00)
[2023-03-16] MEDS: Ipratropium/Albuterol 3 ML NEB NEB SCH ×6 (01:35→22:38)
[2023-03-16] MEDS: methylPREDNISolone Sod Succ 40 MG VIAL IVP SCH ×2 (06:01→17:51)
[2023-03-16] MEDS: Dextrose 5% in Water 1,000 ML IV SCH (06:01)
[2023-03-16 08:25] LABS: #Monocytes 0.5 thou/uL (0.11-0.59); %Monocytes 5.9 % (0.0-10.0); %Neutrophils 87.1 % (42.0-75.0); Hematocrit 27.2 % (36.0-47.0); Hemoglobin 8.4 g/dL (12.0-16.0); Mean Corpuscular HGB CONC 30.9 g/dL (32.0-36.0); Mean Corpuscular Hemoglobin 30.9 pg (27.0-31.0); Mean Platelet Volume 9.8 fL (7.4-10.4); Platelet Count 160 10x3/uL (130-400); RBC Distribution Width 15.9 % (11.5-14.5); Red Blood Cell (RBC) Count 2.72 mill/uL (4.20-5.40)
[2023-03-16 08:55] LABS: BUN (Urea Nitrogen) 25 mg/dL (9.8-20.1); Calc. Creatinine Clearance 38 mL/min (70-130); Calcium 8.4 mg/dL (7.8-10.44); Chloride 98 mmol/L (98-107); Estimated GFR 71; Glucose 126 mg/dL (83-110); Sodium 143 mmol/L (136-145)
[2023-03-16 09:10] LABS: Carbon Dioxide 35 mmol/L (23-31)
[2023-03-16 09:11] LABS: Anion Gap 15 mmol/L (10-20)
[2023-03-16] MEDS ORDERED: Cefepime 1 GM in Sodium Chloride 0.9% 100 ML IVPB SCH (12:00)
[2023-03-16 19:34] LABS: Vancomycin, Random 6.6 ug/mL (See Comment)
[2023-03-16] MEDS ORDERED: Vancomycin HCl 750 MG in Sodium Chloride 0.9% 250 ML 250 ML IVPB SCH (20:15)
[2023-03-16] MEDS: Amoxicillin/Potassium Clav 875 MG TAB PO SCH (20:46)
[2023-03-17] MEDS: Dextrose 5% in Water 1,000 ML IV SCH ×2 (00:10→20:09)
[2023-03-17] MEDS: Ipratropium/Albuterol 3 ML NEB NEB SCH ×6 (02:17→22:36)
[2023-03-17 06:34] LABS: Anion Gap 12 mmol/L (10-20); BUN (Urea Nitrogen) 24 mg/dL (9.8-20.1); Calc. Creatinine Clearance 40 mL/min (70-130); Calcium 8.4 mg/dL (7.8-10.44); Carbon Dioxide 33 mmol/L (23-31); Chloride 97 mmol/L (98-107); Estimated GFR 74; Glucose 115 mg/dL (83-110); Potassium 4.4 mmol/L (3.5-5.1); Sodium 138 mmol/L (136-145)
[2023-03-17] MEDS: predniSONE 20 MG TAB PO SCH (08:08)
[2023-03-17] MEDS: Amoxicillin/Potassium Clav 875 MG TAB PO SCH ×2 (08:08→20:09)
[2023-03-17] MEDS ORDERED: FLU VACC QS2023(65UP)/MF59C/PF 60 MCG/0.5 ML SYRINGE IM ONE (09:00)
[2023-03-17] MEDS: Acetaminophen 325 MG TAB PO PRN (13:40)
[2023-03-18] MEDS: Ipratropium/Albuterol 3 ML NEB NEB SCH ×6 (01:55→22:57)
[2023-03-18 05:41] LABS: Anion Gap 13 mmol/L (10-20); BUN (Urea Nitrogen) 20 mg/dL (9.8-20.1); Calc. Creatinine Clearance 40 mL/min (70-130); Calcium 8.6 mg/dL (7.8-10.44); Carbon Dioxide 33 mmol/L (23-31); Chloride 96 mmol/L (98-107); Estimated GFR 72; Glucose 97 mg/dL (83-110); Potassium 3.9 mmol/L (3.5-5.1); Sodium 138 mmol/L (136-145)
[2023-03-18] MEDS: predniSONE 20 MG TAB PO SCH (08:47)
[2023-03-18] MEDS: Amoxicillin/Potassium Clav 875 MG TAB PO SCH ×2 (08:47→20:32)
[2023-03-19] MEDS: Ipratropium/Albuterol 3 ML NEB NEB SCH ×5 (02:14→19:02)
[2023-03-19 06:57] LABS: Anion Gap 11 mmol/L (10-20); BUN (Urea Nitrogen) 21 mg/dL (9.8-20.1); Calc. Creatinine Clearance 51 mL/min (70-130); Calcium 8.9 mg/dL (7.8-10.44); Carbon Dioxide 36 mmol/L (23-31); Chloride 97 mmol/L (98-107); Estimated GFR 67; Glucose 85 mg/dL (83-110); Sodium 140 mmol/L (136-145)
[2023-03-19] MEDS: predniSONE 20 MG TAB PO SCH (09:19)
[2023-03-19] MEDS: Amlodipine 10 MG TAB PO SCH (09:20)
[2023-03-19] MEDS: Amoxicillin/Potassium Clav 875 MG TAB PO SCH ×2 (09:23→20:17)
[2023-03-19] MEDS ORDERED: Ipratropium/Albuterol 3 ML NEB NEB PRN (11:51)
[2023-03-19] MEDS: Atorvastatin Calcium 40 MG TAB PO SCH (20:17)
[2023-03-20] MEDS: Ipratropium/Albuterol 3 ML NEB NEB SCH ×3 (07:22→18:25)
[2023-03-20] MEDS: Amlodipine 10 MG TAB PO SCH (08:16)
[2023-03-20] MEDS: predniSONE 20 MG TAB PO SCH (08:16)
[2023-03-20] MEDS: Amoxicillin/Potassium Clav 875 MG TAB PO SCH ×2 (08:17→21:28)
[2023-03-20] MEDS: Acetaminophen 325 MG TAB PO PRN (15:17)
[2023-03-20] MEDS: Atorvastatin Calcium 40 MG TAB PO SCH (21:27)
[2023-03-21] MEDS: Ipratropium/Albuterol 3 ML NEB NEB SCH ×3 (08:31→18:43)
[2023-03-21] MEDS ORDERED: Meclizine HCl 12.5 MG TAB PO PRN (09:45)
[2023-03-21] MEDS ORDERED: Meclizine HCl 12.5 MG TAB PO SCH (09:45)
[2023-03-21] MEDS: Amoxicillin/Potassium Clav 875 MG TAB PO SCH ×2 (09:51→21:27)
[2023-03-21] MEDS: predniSONE 20 MG TAB PO SCH (09:51)
[2023-03-21] MEDS: Amlodipine 10 MG TAB PO SCH (09:51)
[2023-03-21] MEDS: Atorvastatin Calcium 40 MG TAB PO SCH (21:28)
[2023-03-22] MEDS: Ipratropium/Albuterol 3 ML NEB NEB SCH ×3 (07:13→19:25)
[2023-03-22] MEDS: predniSONE 20 MG TAB PO SCH (09:52)
[2023-03-22] MEDS: Amlodipine 10 MG TAB PO SCH (09:52)
[2023-03-22] MEDS: Amoxicillin/Potassium Clav 875 MG TAB PO SCH ×2 (09:52→20:25)
[2023-03-22] MEDS: Atorvastatin Calcium 40 MG TAB PO SCH (20:25)
[2023-03-23] MEDS: Ipratropium/Albuterol 3 ML NEB NEB SCH ×3 (08:16→19:00)
[2023-03-23] MEDS: predniSONE 20 MG TAB PO SCH (09:14)
[2023-03-23] MEDS: Amlodipine 10 MG TAB PO SCH (09:15)
[2023-03-23] MEDS: Amoxicillin/Potassium Clav 875 MG TAB PO SCH ×2 (09:15→19:51)
[2023-03-23] MEDS ORDERED: Dextrose 50% Abboject 50 ML SYRINGE SLOW IVP PRN (09:34)
[2023-03-23] MEDS ORDERED: Dextrose 5% in Water 1,000 ML IV PRN (09:34)
[2023-03-23] MEDS ORDERED: Glucagon 1 MG/ML KIT IM PRN (09:34)
[2023-03-23] MEDS: Acetaminophen 325 MG TAB PO PRN (14:47)
[2023-03-23] MEDS: Atorvastatin Calcium 40 MG TAB PO SCH (19:51)
[2023-03-23] MEDS: HumaLOG 300 UNITS/3 ML VIAL SC PRN ×2 (19:57→19:58)
[2023-03-24 05:57] LABS: Hematocrit 27.7 % (36.0-47.0); Hemoglobin 8.6 g/dL (12.0-16.0); Platelet Count 147 10x3/uL (130-400)
[2023-03-24] MEDS: Ipratropium/Albuterol 3 ML NEB NEB SCH ×3 (06:44→18:30)
[2023-03-24] MEDS: predniSONE 20 MG TAB PO SCH (08:09)
[2023-03-24] MEDS: Amoxicillin/Potassium Clav 875 MG TAB PO SCH ×2 (08:09→20:20)
[2023-03-24] MEDS: Amlodipine 10 MG TAB PO SCH (08:09)
[2023-03-24] MEDS: Atorvastatin Calcium 40 MG TAB PO SCH (20:20)
[2023-03-25 07:28] LABS: #Monocytes 0.4 thou/uL (0.11-0.59); #Neutrophils 5.6 thou/uL (1.40-6.50); %Basophils 0.3 % (0.0-1.0); %Eosinophils 0.1 % (0.0-10.0); %Lymphocytes 11.8 % (21.0-51.0); %Monocytes 5.5 % (0.0-10.0); %Neutrophils 80.2 % (42.0-75.0); Hematocrit 28.2 % (36.0-47.0); Hemoglobin 8.7 g/dL (12.0-16.0); Mean Corpuscular HGB CONC 30.9 g/dL (32.0-36.0); Mean Corpuscular Hemoglobin 30.4 pg (27.0-31.0); Mean Corpuscular Volume 98.6 fl (78.0-98.0); Mean Platelet Volume 9.8 fL (7.4-10.4); Platelet Count 166 10x3/uL (130-400); Red Blood Cell (RBC) Count 2.86 mill/uL (4.20-5.40)
[2023-03-25 07:48] LABS: Anion Gap 11 mmol/L (10-20); BUN (Urea Nitrogen) 33 mg/dL (9.8-20.1); Calc. Creatinine Clearance 41 mL/min (70-130); Calcium 9.2 mg/dL (7.8-10.44); Carbon Dioxide 33 mmol/L (23-31); Chloride 98 mmol/L (98-107); Estimated GFR 73; Glucose 81 mg/dL (83-110); Potassium 4.4 mmol/L (3.5-5.1); Sodium 138 mmol/L (136-145)
[2023-03-25] MEDS: Ipratropium/Albuterol 3 ML NEB NEB SCH ×3 (07:55→18:39)
[2023-03-25] MEDS: Amoxicillin/Potassium Clav 875 MG TAB PO SCH ×2 (08:04→20:55)
[2023-03-25] MEDS: Amlodipine 10 MG TAB PO SCH (08:04)
[2023-03-25] MEDS: predniSONE 20 MG TAB PO SCH (08:04)
[2023-03-25] MEDS: Atorvastatin Calcium 40 MG TAB PO SCH (20:54)
[2023-03-26] MEDS: Ipratropium/Albuterol 3 ML NEB NEB SCH ×3 (06:44→19:56)
[2023-03-26] MEDS: Amoxicillin/Potassium Clav 875 MG TAB PO SCH (08:24)
[2023-03-26] MEDS: predniSONE 20 MG TAB PO SCH (08:24)
[2023-03-26] MEDS: Amlodipine 10 MG TAB PO SCH (08:24)
[2023-03-26] MEDS: Atorvastatin Calcium 40 MG TAB PO SCH (20:24)
[2023-03-27] MEDS: Ipratropium/Albuterol 3 ML NEB NEB SCH ×3 (07:53→18:59)
[2023-03-27] MEDS: Amlodipine 10 MG TAB PO SCH (08:47)
[2023-03-27] MEDS: predniSONE 20 MG TAB PO SCH (08:47)
[2023-03-27 12:49] VITALS: BMI 22.2
[2023-03-27] MEDS: Atorvastatin Calcium 40 MG TAB PO SCH (21:03)
[2023-03-28] MEDS: Ipratropium/Albuterol 3 ML NEB NEB SCH ×3 (07:37→18:37)
[2023-03-28 08:13] LABS: #Eosinphils 0.1 thou/uL (0.0-0.7); #Monocytes 0.5 thou/uL (0.11-0.59); #Neutrophils 6.3 thou/uL (1.40-6.50); %Basophils 0.1 % (0.0-1.0); %Eosinophils 0.8 % (0.0-10.0); %Lymphocytes 14.4 % (21.0-51.0); %Monocytes 5.6 % (0.0-10.0); %Neutrophils 76.1 % (42.0-75.0); Hematocrit 32.1 % (36.0-47.0); Hemoglobin 10.2 g/dL (12.0-16.0); Mean Corpuscular HGB CONC 31.8 g/dL (32.0-36.0); Mean Corpuscular Hemoglobin 31.8 pg (27.0-31.0); Mean Platelet Volume 9.3 fL (7.4-10.4); Platelet Count 217 10x3/uL (130-400); RBC Distribution Width 17.2 % (11.5-14.5); Red Blood Cell (RBC) Count 3.21 mill/uL (4.20-5.40); White Blood Cell (WBC) Count 8.3 10x3/uL (4.8-10.8)
[2023-03-28] MEDS: predniSONE 20 MG TAB PO SCH (08:29)
[2023-03-28] MEDS: Amlodipine 10 MG TAB PO SCH (08:29)
[2023-03-28 08:30] LABS: Anion Gap 11 mmol/L (10-20); BUN (Urea Nitrogen) 43 mg/dL (9.8-20.1); Calc. Creatinine Clearance 43 mL/min (70-130); Calcium 9.6 mg/dL (7.8-10.44); Carbon Dioxide 36 mmol/L (23-31); Chloride 96 mmol/L (98-107); Estimated GFR 78; Glucose 79 mg/dL (83-110); Potassium 4.6 mmol/L (3.5-5.1); Sodium 138 mmol/L (136-145)
[2023-03-28] MEDS: Acetaminophen 325 MG TAB PO PRN (13:58)
[2023-03-28] MEDS: Atorvastatin Calcium 40 MG TAB PO SCH (20:28)
[2023-03-29] MEDS: Ipratropium/Albuterol 3 ML NEB NEB SCH ×3 (06:42→19:02)
[2023-03-29] MEDS: Amlodipine 10 MG TAB PO SCH (08:16)
[2023-03-29] MEDS: predniSONE 20 MG TAB PO SCH (08:16)
[2023-03-29] MEDS: HumaLOG 300 UNITS/3 ML VIAL SC PRN (15:47)
[2023-03-29] MEDS: Atorvastatin Calcium 40 MG TAB PO SCH (20:30)
[2023-03-30] MEDS: Ipratropium/Albuterol 3 ML NEB NEB SCH ×2 (06:48→13:08)
[2023-03-30] MEDS: predniSONE 20 MG TAB PO SCH (09:27)
[2023-03-30] MEDS: Amlodipine 10 MG TAB PO SCH (09:27)
[2023-03-30 12:57] VITALS: BP 138/73; TEMP 98.4
== END 2023-03-30 14:04 | disposition home health service (06) | DRG 291 ==
LOC: ERS 14:21 → IMCU/EMU 20:56 → T4-B 03-18 16:24
PROVIDERS: ADMIT Student in an Organized Health Care Education/Training Program; ATTEND Family Medicine
PROC: 0T9B70Z Drainage of Bladder with Drainage Device, Via Natural or Artificial Opening (ICD-10-PCS; principal; 2023-03-13)
PROC: 4A043R1 Measurement of Venous Saturation, Peripheral, Percutaneous Approach (ICD-10-PCS; 2023-03-13)
PROC: 5A09357 Assistance with Respiratory Ventilation, Less than 24 Consecutive Hours, Continuous Positive Airway Pressure (ICD-10-PCS; 2023-03-13)
DX: I11.0 Hypertensive heart disease with heart failure (principal); G93.41 Metabolic encephalopathy; J96.21 Acute and chronic respiratory failure with hypoxia; I50.33 Acute on chronic diastolic (congestive) heart failure; E87.1 Hypo-osmolality and hyponatremia; J44.1 Chronic obstructive pulmonary disease with (acute) exacerbation; Z88.2 Allergy status to sulfonamides; Z88.1 Allergy status to other antibiotic agents; Z79.899 Other long term (current) drug therapy; Z66 Do not resuscitate; J44.9 Chronic obstructive pulmonary disease, unspecified; E78.5 Hyperlipidemia, unspecified; Z87.891 Personal history of nicotine dependence; Z11.52 Encounter for screening for COVID-19; D64.9 Anemia, unspecified; G47.33 Obstructive sleep apnea (adult) (pediatric); I42.0 Dilated cardiomyopathy; K21.9 Gastro-esophageal reflux disease without esophagitis
CPT/HCPCS: 36415; 36416; 70450; 71045; 71275; 80048; 80053; 80202; 81001; 82140; 82805; 83605; 83735; 83880; 84443; 84484; 85014; 85018; 85025; 85049; 85610; 85730; 86140; 87040; 87081; 87086; 87804; 87807; 93005; 94640; 94660; 94760; 96361; 96365; 96366; 96367; 96375; 97139; J0692; J1650; J1815; J1940; J2920; J3370; J3370-JW; J3490; J7050; J7070; J7512; J7620; Q9967; U0002